=== PATIENT | female | born 1995 | race Caucasian/White ===

== ENCOUNTER → 2019-07-26 19:45 | Observation (INO) ==
[2019-07-26 17:33] LABS: Bilirubin,Urine Negative (Negative); Blood,Urine Small (Negative); Clarity,Urine Cloudy (Clear); Color,Urine Yellow (Yellow); Glucose,Urine (UA) Normal (Normal); Ketones,Urine Negative (Negative); Leukocyte Esterase,Urine Large (Negative); Nitrite,Urine Positive (Negative); PH,Urine 7.5 pH Units (5.0-8.0); Protein,Urine 30 mg/dL (Neg-Trace); Specific Gravity,Urine 1.021 (1.010-1.025); Urobilinogen,Urine Normal (Normal)
[2019-07-26 17:34] LABS: Amphetamine Screen,Urine Negative ng/mL (Cutoff=1000); Barbiturate Screen,Urine Negative ng/mL (Cutoff=200); Benzodiazepines Screen,Urine Negative ng/mL (Cutoff=200); Cannabinoid Screen,Urine Negative ng/mL (Cutoff = 50); Cocaine Screen,Urine Negative ng/mL (Cutoff= 300); Opiate Screen,Urine Negative ng/mL (Cutoff=300); Phencyclidine Screen,Urine Negative ng/mL (Cutoff=25)
[2019-07-26 17:38] LABS: Bacteria,Urine Many per hpf (None-Few); Hyaline Casts,Urine Moderate per lpf (None-Few); RBC,Urine 0-3 per hpf (0-3); Squamous Epithelial Cell,Urine Many per lpf (None-Few); WBC,Urine TNTC per hpf (0-3)
[~2019-07-26 19:45] MED LIST: Ringers Solution, Lactated 1,000 ML IVC SCH; Ringers Solution, Lactated 1,000 ML ONE; cefTRIAXone 1,000 MG in Water for inj. (sterile) 10 ML IVP ONE
== END | disposition home or self-care (01) ==
LOC: 1NENULAB
PROVIDERS: ADMIT Obstetrics & Gynecology; ATTEND Obstetrics & Gynecology

== ENCOUNTER → 2019-08-02 13:30 | Observation (INO) ==
[2019-08-02 12:59] LABS: Bilirubin,Urine Negative (Negative); Blood,Urine Trace (Negative); Clarity,Urine Cloudy (Clear); Color,Urine Yellow (Yellow); Glucose,Urine (UA) Normal (Normal); Ketones,Urine Negative (Negative); Leukocyte Esterase,Urine Small (Negative); Nitrite,Urine Negative (Negative); PH,Urine 7.5 pH Units (5.0-8.0); Protein,Urine Negative (Neg-Trace); Specific Gravity,Urine 1.021 (1.010-1.025); Urobilinogen,Urine Normal (Normal)
[2019-08-02 13:03] LABS: Bacteria,Urine None Seen per hpf (None-Few); Hyaline Casts,Urine None Seen per lpf (None-Few); RBC,Urine 15-30 per hpf (0-3); Squamous Epithelial Cell,Urine Many per lpf (None-Few)
[2019-08-02 13:21] LABS: Amphetamine Screen,Urine Negative ng/mL (Cutoff=1000); Barbiturate Screen,Urine Negative ng/mL (Cutoff=200); Benzodiazepines Screen,Urine Negative ng/mL (Cutoff=200); Cannabinoid Screen,Urine Negative ng/mL (Cutoff = 50); Cocaine Screen,Urine Negative ng/mL (Cutoff= 300); Opiate Screen,Urine Negative ng/mL (Cutoff=300); Phencyclidine Screen,Urine Negative ng/mL (Cutoff=25)
== END | disposition home or self-care (01) ==
LOC: 1NENULAB
PROVIDERS: ADMIT Advanced Practice Midwife; ATTEND Advanced Practice Midwife

== ENCOUNTER → 2019-09-07 21:40 | Observation (INO) ==
[2019-09-07 19:11] LABS: Basophils % 0.2 %; Eosinophils % 0.3 %; Hematocrit 28.2 % (35.3-44.9); Immature Granulocytes % 0.3 % (0-4); Lymphocytes # 1.4 K/mcL (0.6-4.6); Lymphocytes % 15.3 %; Mean Corpuscular HGB Conc 31.9 g/dL (31.6-35.5); Mean Corpuscular Hemoglobin 29.7 pg (28.0-33.3); Mean Corpuscular Volume 93.1 fL (83.0-100.0); Mean Platelet Volume 11.9 fL (9.4-12.4); Monocytes # 0.7 K/mcL (0.0-1.3); Monocytes % 7.5 %; Neutrophils # 6.7 K/mcL (1.6-8.9); Platelet Count 221 K/mcL (140-400); Red Blood Count 3.03 M/mcL (3.82-4.97); Red Cell Distribution Width 12.9 % (11.5-14.5); Segmented Neutrophils % 76.4 %; White Blood Count 8.8 K/mcL (4.3-11.1)
[2019-09-07 19:16] LABS: Protein/Creatinine Ratio,Urine 0.43 mg/mg (0.00-0.20)
[2019-09-07 19:32] LABS: Alanine Aminotransferase 9 Units/L (7-52); Aspartate Amino Transferase 13 Units/L (13-39); BUN/Creatinine Ratio 15 (6-26); Blood Urea Nitrogen 11 mg/dL (6-20); Lactate Dehydrogenase 147 Units/L (140-271); Uric Acid 4.4 mg/dL (2.3-7.6); eGFR For African Americans > 60 (> 60); eGFR For Non-African Americans > 60 (> 60)
== END | disposition home or self-care (01) ==
LOC: 1NENULAB
PROVIDERS: ADMIT Advanced Practice Midwife; ATTEND Advanced Practice Midwife

== ENCOUNTER 2019-09-19 00:51 | Inpatient (IN) ==
[2019-09-18 22:54] LABS: Basophils % 0.2 %; Hematocrit 31.4 % (35.3-44.9); Hemoglobin 10.2 g/dL (11.5-15.4); Immature Granulocytes % 0.5 % (0-4); Lymphocytes # 0.7 K/mcL (0.6-4.6); Mean Corpuscular HGB Conc 32.5 g/dL (31.6-35.5); Mean Corpuscular Hemoglobin 29.2 pg (28.0-33.3); Mean Platelet Volume 12.6 fL (9.4-12.4); Monocytes # 0.5 K/mcL (0.0-1.3); Neutrophils # 10.6 K/mcL (1.6-8.9); Nucleated Red Blood Cells 0.2 /100 WBC (0); Platelet Count 210 K/mcL (140-400); Red Blood Count 3.49 M/mcL (3.82-4.97); Segmented Neutrophils % 89.3 %; White Blood Count 11.8 K/mcL (4.3-11.1)
[2019-09-18 23:07] LABS: BUN/Creatinine Ratio 15 (6-26); Blood Urea Nitrogen 11 mg/dL (6-20); Calcium 8.3 mg/dL (8.6-10.3); Carbon Dioxide 18 mEq/L (23-29); Chloride 107 mEq/L (98-107); Glucose 75 mg/dL (70-105); Osmolality,Calculated 282 (280-300); Potassium 3.9 mEq/L (3.5-5.1); Sodium 137 mEq/L (136-145); eGFR For African Americans > 60 (> 60); eGFR For Non-African Americans > 60 (> 60)
[~2019-09-19 00:51] MED LIST changes: +CeFAZolin Premix DUPLEX 2,000 MG/50 ML BAG IVPB ONE; +Famotidine 20 MG/2 ML VIAL IVP ONE; +Metoclopramide 10 MG/2 ML VIAL IVP ONE; +Ondansetron 4 MG/2 ML VIAL IVP ONE; +Oxytocin 20 units/ LR 1000 mL 20 UNIT/1,000 ML BAG IVC ONE; +Ringers Solution, Lactated 1,000 ML IVC ONE; -cefTRIAXone 1,000 MG in Water for inj. (sterile) 10 ML IVP ONE; +hydrOXYzine pamoate 25 MG CAPSULE PO ONE
[2019-09-19] MEDS ORDERED: Oxytocin 20 units/ LR 1000 mL 20 UNIT/1,000 ML BAG IVC SCH (01:00)
[2019-09-19] MEDS ORDERED: *HR* OxyCODONE Immed Rel 5 MG TABLET PO PRN (01:16)
[2019-09-19] MEDS ORDERED: Acetaminophen IV 1,000 MG/100 ML INFUS..BTL IVPB ONE (01:16)
[2019-09-19] MEDS ORDERED: *HR* FentaNYL (PF) 100 MCG/2 ML VIAL ONE (01:16)
[2019-09-19] MEDS ORDERED: *HR* Succinylcholine 200 MG/10 ML VIAL IVP ONE (01:16)
[2019-09-19] MEDS ORDERED: *HR* Propofol 200 MG/20 ML VIAL IVP ONE (01:16)
[2019-09-19] MEDS ORDERED: *HR* Oxytocin 10 UNIT/ML VIAL IM ONE (01:18)
[2019-09-19] MEDS ORDERED: Ondansetron 4 MG/2 ML VIAL ONE (02:17)
[2019-09-19] MEDS ORDERED: Dexamethasone 4 MG/ML VIAL ONE (02:17)
[2019-09-19] MEDS: *HR* HYDROmorphone (PF) 1 MG/ML SYRINGE IVP PRN ×4 (02:20→03:14)
[2019-09-19 04:08] LABS: Amphetamine Screen,Urine Negative ng/mL (Cutoff=1000); Barbiturate Screen,Urine Negative ng/mL (Cutoff=200); Benzodiazepines Screen,Urine Negative ng/mL (Cutoff=200); Cannabinoid Screen,Urine Negative ng/mL (Cutoff = 50); Cocaine Screen,Urine Negative ng/mL (Cutoff= 300); Opiate Screen,Urine Negative ng/mL (Cutoff=300); Phencyclidine Screen,Urine Negative ng/mL (Cutoff=25)
[2019-09-19] MEDS ORDERED: Rho Immune Globulin 1,500 UNIT SYRINGE IM ONE (05:02)
[2019-09-19] MEDS ORDERED: Metoclopramide 10 MG/2 ML VIAL IVP PRN (05:02)
[2019-09-19] MEDS ORDERED: Ondansetron 4 MG/2 ML VIAL IVP PRN (05:02)
[2019-09-19] MEDS ORDERED: Simethicone 80 MG TAB.CHEW PO PRN (05:02)
[2019-09-19] MEDS ORDERED: Sennosides 8.6 MG TABLET PO PRN (05:02)
[2019-09-19] MEDS ORDERED: Acetaminophen 325 MG TABLET PO PRN (05:02)
[2019-09-19] MEDS: Ibuprofen 600 MG TABLET PO PRN ×3 (05:33→17:55)
[2019-09-19] MEDS: *HR* OxyCODONE/APAP 5/325 TABLET PO PRN ×2 (09:24→13:47)
[2019-09-19] MEDS: Prenatal Vit/FA 1 EACH TABLET PO SCH (09:24)
[2019-09-19] MEDS: cephALEXin 500 MG CAPSULE PO SCH ×3 (09:25→21:15)
[2019-09-19] MEDS ORDERED: Ringers Solution, Lactated 1,000 ML ONE (10:11)
[2019-09-20] MEDS: *HR* OxyCODONE/APAP 5/325 TABLET PO PRN ×4 (00:13→19:40)
[2019-09-20] MEDS: Prenatal Vit/FA 1 EACH TABLET PO SCH (07:39)
[2019-09-20] MEDS: cephALEXin 500 MG CAPSULE PO SCH ×2 (07:39→19:40)
[2019-09-20] MEDS: Ibuprofen 600 MG TABLET PO PRN ×3 (07:39→23:21)
[2019-09-21] MEDS: *HR* OxyCODONE/APAP 5/325 TABLET PO PRN ×3 (01:22→13:23)
[2019-09-21] MEDS: Ibuprofen 600 MG TABLET PO PRN ×2 (06:26→13:23)
[2019-09-21 08:08] VITALS: BP 135/91
[2019-09-21 11:19] LABS: Basophils % 0.2 %; Eosinophils # 0.2 K/mcL (0.0-0.6); Eosinophils % 1.9 %; Hematocrit 30.2 % (35.3-44.9); Hemoglobin 9.7 g/dL (11.5-15.4); Immature Granulocytes % 1.1 % (0-4); Lymphocytes # 1.9 K/mcL (0.6-4.6); Lymphocytes % 22.4 %; Mean Corpuscular HGB Conc 32.1 g/dL (31.6-35.5); Mean Corpuscular Volume 90.1 fL (83.0-100.0); Mean Platelet Volume 10.6 fL (9.4-12.4); Monocytes # 0.7 K/mcL (0.0-1.3); Neutrophils # 5.6 K/mcL (1.6-8.9); Nucleated Red Blood Cells 0.2 /100 WBC (0); Platelet Count 199 K/mcL (140-400); Red Blood Count 3.35 M/mcL (3.82-4.97); Red Cell Distribution Width 13.4 % (11.5-14.5); Segmented Neutrophils % 66.4 %; White Blood Count 8.4 K/mcL (4.3-11.1)
[2019-09-21 11:41] LABS: Alanine Aminotransferase 15 Units/L (7-52); Aspartate Amino Transferase 35 Units/L (13-39); BUN/Creatinine Ratio 14 (6-26); Blood Urea Nitrogen 11 mg/dL (6-20); Lactate Dehydrogenase 252 Units/L (140-271); Uric Acid 4.2 mg/dL (2.3-7.6); eGFR For African Americans > 60 (> 60); eGFR For Non-African Americans > 60 (> 60)
== END 2019-09-21 15:06 | disposition home or self-care (01) | DRG 540 ==
LOC: 1NENULAB → 1NENUOBS 05:04
PROVIDERS: ADMIT Advanced Practice Midwife; ATTEND Advanced Practice Midwife